=== PATIENT | male | born 1975 | race African-American/Black ===

== ENCOUNTER 2022-03-02 10:07 | Emergency (ER) | payer SELFPAY ==
[2022-03-02] MEDS ORDERED: Ketorolac Tromethamine 30 MG/ML VIAL ONE (11:37)
== END 2022-03-02 11:44 | disposition home or self-care (01) ==
LOC: ERS 10:07
DX: M79.672 Pain in left foot (principal); W22.8XXA Striking against or struck by other objects, initial encounter
CPT/HCPCS: 96372; J1885